=== PATIENT | female | born 1960 | race Caucasian/White ===

== ENCOUNTER 2016-12-04 17:39 | Emergency (ER) | payer MEDICARE, MEDICAID ==
[2016-12-04 18:38] VITALS: BP 130/73
--- NOTE | 2016-12-04 19:06 | UC ---
FLU HPI - HPI Summary HPI Summary: pt presents with nasal congestion, generalized malaise, sore throat X1 day. Has known exposure to URI. Did not get influenza vaccine this year. - History of Current Complaint Chief Complaint: UCRespiratory Stated Complaint: CHEST CONGESTION, AND COUGH Time Seen by Provider: 12/04/16 18:34 Hx Obtained From: Patient ?: No Onset/Duration: Sudden Onset, Lasting Days Severity Currently: Moderate Severity Initially: Mild Associated Signs & Symptoms: Positive: Myalgia, Cough, Sore Throat, Nasal Congestion, Headache - Risk Factors Influenza Risk Factors: Negative - Allergy/Home Medications Allergies/Adverse Reactions: Allergies Allergy/AdvReac Type Severity Reaction Status Date / Time No Known Allergies Allergy Verified 02/15/15 10:08 Home Medications: Home Medications Baclofen TAB* [Lioresal TAB*] 10 mg PO 12/04/16 [History] PMH/Surg Hx/FS Hx/Imm Hx Previously Healthy: Yes Endocrine History Of: Denies: Diabetes, Thyroid Disease Cardiovascular History Of: Denies: Cardiac Disorders, Hypertension Respiratory History Of: Denies: COPD, Asthma GI/ History Of: Denies: Ulcer Psychological History Of: Reports: Anxiety - ON DAILY MEDS, Depression Cancer History Of: Denies: Breast Cancer - Surgical History Surgical History: Yes Surgery Procedure, Year, and Place: 02/2014 [facility]Y [facility]. 1983 BILATERAL TUBAL LIGATION [facility] [place]. 1968 ANTERIOR NECK AREA, CYST REMOVED [facility] - Family History Known Family History: Positive: Other - positive [facility] for URI - Social History Lives: With Family Alcohol Use: None Substance Use Type: None Smoking Status (MU): Current Every Day Smoker Type: Cigarettes Amount Used/How Often: 1PPD 35 YRS Length of Time of Smoking/Using Tobacco: 35 YRS Have You Smoked in the Last Year: No - STATES QUIT IN JANUARY 2014 When Did the Patient Quit Smoking/Using Tobacco: 01/2014 Household Exposure Type: Cigarettes - Immunization History Most Recent Influenza Vaccination: Never Most Recent Tetanus Shot: WIthin 10 years Most Recent Pneumonia Vaccination: Never Review of Systems Constitutional: Fever, Chills, Fatigue Skin: Negative Eyes: Negative ENT: Sore Throat, Other - nasal congestion Respiratory: Cough Cardiovascular: Negative Gastrointestinal: Negative Genitourinary: Negative Motor: Negative Neurovascular: Negative Musculoskeletal: Myalgia Neurological: Headache Psychological: Negative All Other Systems Reviewed And Are Negative: Yes Physical Exam Triage Information Reviewed: Yes Appearance: Ill-Appearing Vital Signs: Initial Vital Signs Temp 98.0 F 12/04/16 18:34 Pulse 78 12/04/16 18:34 Resp 18 12/04/16 18:34 BP 130/73 12/04/16 18:34 Pulse Ox 96 12/04/16 18:34 Vital Signs Reviewed: Yes Eye Exam: Normal ENT Exam: Other ENT: Positive: Nasal congestion, TMs normal - bilateral Neck exam: Normal Respiratory Exam: Normal Cardiovascular Exam: Normal Musculoskeletal Exam: Normal Neurological Exam: Normal Psychological Exam: Normal Skin Exam: Normal Flu Course/Dx - Differential Dx/Diagnosis Differential Diagnosis/HQI/PQRI: Bronchitis, Influenza, Upper Respiratory Infection Provider Diagnoses: Bronchitis Discharge - Discharge Plan Condition: Stable Disposition: HOME Prescriptions: Azithromycin TAB* [Zithromax TAB (Z-RELL) 250 mg #6 tabs] 2 tab PO .TODAY, THEN 1 DAILY #1 rell Benzonatate CAP* [Tessalon 100 MG CAP*] 100 mg PO TID PRN #30 cap PRN Reason: Cough Patient Education Materials: Acute Bronchitis (ED) Referrals: Luis F Marie MD [Primary Care Provider] - Additional Instructions: Please follow up with your PCP or return to clinic as needed.
== END 2016-12-04 20:03 | disposition home or self-care (01) ==
LOC: UCEAST 17:39
DX: J40 Bronchitis, not specified as acute or chronic (principal); Z87.891 Personal history of nicotine dependence
CPT/HCPCS: 87502; 99212; G0463

== ENCOUNTER 2017-03-23 18:08 | Emergency (ER) | payer MEDICARE, MEDICAID ==
[2017-03-23] MEDS ORDERED: Aspirin Low Dose CHEW TAB* 81 MG PO ONE (18:16)
--- NOTE | 2017-03-23 18:21 | UC ---
Cardiac HPI - HPI Summary HPI Summary: 56 YEAR OLD FEMALE PRESENTS WITH LEFT SIDED CHEST PAIN WITH RADIATING TO HER SHOULDERS. I WILL SEND HER TO THE ER TO RULE OUT CT. - History of Current Complaint Stated Complaint: DIZZINESS, CHEST COMPLAINT Time Seen by Provider: 03/23/17 18:16 - Allergy/Home Medications Allergies/Adverse Reactions: Allergies Allergy/AdvReac Type Severity Reaction Status Date / Time No Known Allergies Allergy Verified 02/15/15 10:08 PMH/Surg Hx/FS Hx/Imm Hx - Surgical History Surgical History: Yes Surgery Procedure, Year, and Place: 02/2014 [facility]. 1984 BILATERAL TUBAL LIGATION [facility]. 1968 ANTERIOR NECK AREA, CYST REMOVED [facility] - Family History Known Family History: Positive: Other - positive [facility] for URI - Social History Alcohol Use: None Substance Use Type: None Smoking Status (MU): Current Every Day Smoker Type: Cigarettes Amount Used/How Often: 1PPD 35 YRS Length of Time of Smoking/Using Tobacco: 35 YRS Have You Smoked in the Last Year: No - STATES QUIT IN JANUARY 2014 When Did the Patient Quit Smoking/Using Tobacco: 01/2014 Household Exposure Type: Cigarettes - Immunization History Most Recent Influenza Vaccination: Never Most Recent Tetanus Shot: WIthin 10 years Most Recent Pneumonia Vaccination: Never Review of Systems Constitutional: Negative Skin: Negative Eyes: Negative ENT: Negative Respiratory: Negative Cardiovascular: Palpitations, Chest Pain Gastrointestinal: Negative Genitourinary: Negative Motor: Negative Neurovascular: Negative Musculoskeletal: Negative Neurological: Negative Psychological: Negative All Other Systems Reviewed And Are Negative: Yes Physical Exam Triage Information Reviewed: Yes Eye Exam: Normal ENT Exam: Normal Dental Exam: Normal Neck exam: Normal Neck: Positive: 1 Respiratory Exam: Normal Cardiovascular: Positive: Tachycardia Abdominal Exam: Normal Musculoskeletal Exam: Normal Neurological Exam: Normal Psychological Exam: Normal Skin Exam: Normal - Differential Diagnoses - Hypertension Differential Diagnosis/HQI PQRI: Angina, Myocardial Infarction - Differential Diagnoses - Palpitations Differential Diagnosis/HQI/PQRI: Coronary Artery Disease - Clinical Impression Provider Diagnoses: CHEST PAIN. HEART PALPATATIONS Discharge - Discharge Plan Condition: Stable Disposition: [facility] Patient Education Materials: Chest Pain (ED) Referrals: Luis F Marie MD [Primary Care Provider] -
[2017-03-23 18:24] VITALS: BP 131/63
== END 2017-03-23 18:40 | disposition short-term general hospital (02) ==
LOC: UCEAST 18:08
DX: R07.9 Chest pain, unspecified (principal); R00.2 Palpitations; F17.210 Nicotine dependence, cigarettes, uncomplicated
CPT/HCPCS: 93005; 99213; A9270-GY; G0463

== ENCOUNTER 2017-03-23 18:55 | Emergency (ER) | payer MEDICARE, MEDICAID ==
[2017-03-23] MEDS ORDERED: Meclizine TAB* 12.5 MG PO ONE ×2 (19:31→22:42)
[2017-03-23] MEDS ORDERED: Aspirin Low Dose CHEW TAB* 81 MG PO ONE (19:31)
[2017-03-23] MEDS ORDERED: NS 0.9% 1000 ML* 1,000 ML IV ONE (19:31)
[2017-03-23 19:44] LABS: Hematocrit 42 % (35-47); Hemoglobin 14.2 g/dl (12.0-16.0); Mean Corpuscular HGB Conc 34 g/dl (31-36); Mean Corpuscular Hemoglobin 29 pg (27-31); Mean Corpuscular Volume 88 fL (80-97); Mean Platelet Volume 9 um3 (7.4-10.4); Red Blood Count 4.82 10^6/ul (4.0-5.4); Red Cell Distribution Width 13 % (10.5-15)
--- NOTE | 2017-03-23 19:46 | RAD ---
HISTORY: Chest pain COMPARISONS: July 17, 2014 VIEWS:1: Single frontal portable view of the chest at 7:33 PM FINDINGS: LINES AND TUBES: None. CARDIOMEDIASTINAL SILHOUETTE: The cardiomediastinal silhouette is normal for portable technique. PLEURA: The costophrenic angles are sharp. No pleural abnormalities are noted. LUNG PARENCHYMA: The lungs are clear. ABDOMEN: The upper abdomen is clear. There is no subphrenic gas. BONES AND SOFT TISSUES: No bone or soft tissue abnormalities are noted. IMPRESSION: NO ACTIVE CARDIOPULMONARY DISEASE.
--- NOTE | 2017-03-23 19:49 | RAD ---
HISTORY: Dizziness COMPARISONS: None TECHNIQUE: Multiple contiguous axial CT scans were obtained of the head without intravenous contrast. FINDINGS: HEMORRHAGE/INFARCT: There is no hemorrhage or acute infarct. MASSES/SHIFT: There is no mass or shift. EXTRA-AXIAL SPACES: There are no extra-axial fluid collections. SULCI AND VENTRICLES: The sulci and ventricles are normal in size and position for the patient's stated age. CEREBRUM: There are no focal parenchymal abnormalities. BRAINSTEM: There are no focal parenchymal abnormalities. CEREBELLUM: There are no focal parenchymal abnormalities. VESSELS: The vessels are grossly normal. PARANASAL SINUSES: The paranasal sinuses are clear. ORBITS: The orbits are unremarkable. BONES AND SOFT TISSUE: No bone or soft tissue abnormalities are noted. OTHER: None IMPRESSION: NO ACUTE INTRACRANIAL PATHOLOGY.
[2017-03-23 19:54] LABS: Albumin 4.1 g/dL (3.2-5.2); BUN/Creatinine Ratio 13.5 (8-20); C Reactive Protein 3.03 mg/L (< 5.00); Calcium 9.7 mg/dL (8.6-10.3); EGFR African American 104.4 (>60); EGFR Non-African American 81.2 (>60); Globulin 3.1 g/dL (2-4); Magnesium 2.3 mg/dL (1.9-2.7); Potassium 4.3 mmol/L (3.5-5.0); Total Bilirubin 0.3 mg/dL (0.2-1.0); Total Protein 7.2 g/dL (6.4-8.9)
[2017-03-23 20:04] LABS: TSH (Thyroid Stimulating Horm) 1.11 mcIU/mL (0.34-5.60)
--- NOTE | 2017-03-23 22:49 | ED ---
Kimi Nicole Rebecca, scribed for Alvino Roe MD on 03/23/17 at 1922 . Dizziness - HPI Summary HPI Summary: Pt is a 56 y/o F BIBA who presents to ED c/o dizziness. Dizziness began 2.5 weeks ago and has been intermittent since onset. Dizziness is characterized as feeling near syncopal and weak, further described by saying she "feels like my head is whooshy." Sx aggravated by activity and sitting up, alleviated by nothing. Additionally c/o CP with radiation to the back characterized as a dull , sore sensation that does not change with the dizziness. Also c/o diaphoresis, productive cough (green mucous) and palpitations characterized as hard. Diaphoresis is associated with dizziness episodes. Denies SULLIVAN, rhinorrhea, sore throat, ear ache, abd pain, decreased appetite, dysuria, edema and LE pain. - History Of Current Complaint Chief Complaint: EDDizziness Stated Complaint: TRANSFER FROM [facility] Time Seen by Provider: 03/23/17 19:20 Hx Obtained From: Patient Onset/Duration: Still Present Timing: Intermittent Episode Lasting Character: Weak Aggravating Factor(s): Exertion, Position Change Alleviating Factor(s): Nothing Associated Signs And Symptoms: Positive: Diaphoresis, Chest Pain, Palpitations, Other: - Cough (productive) - Allergies/Home Medications Allergies/Adverse Reactions: Allergies Allergy/AdvReac Type Severity Reaction Status Date / Time No Known Allergies Allergy Verified 02/15/15 10:08 PMH/Surg Hx/FS Hx/Imm Hx Endocrine/Hematology History: Denies: Hx Diabetes, Hx Thyroid Disease Cardiovascular History: Denies: Hx Deep Vein Thrombosis, Hx Hypertension Respiratory History: Denies: Hx Asthma, Hx Chronic Obstructive Pulmonary Disease (COPD) GI History: Reports: Hx Irritable Bowel - Hx OF , NOT CURRENT Denies: Hx Ulcer Musculoskeletal History: Reports: Hx Arthritis - HANDS, Hx Bursitis - LEFT THIGH Sensory History: Reports: Hx Contacts or Glasses - READING Opthamlomology History: Reports: Hx Contacts or Glasses - READING Psychiatric History: Reports: Hx Anxiety - ON DAILY MEDS, Hx Depression Denies: Hx Eating Disorder, Hx of Violent Episodes Against Others - Surgical History Surgery Procedure, Year, and Place: 02/2014 [facility]. 1983 BILATERAL TUBAL LIGATION [facility]. 1968 ANTERIOR NECK AREA, CYST REMOVED [facility] Hx Anesthesia Reactions: No Infectious Disease History: Denies: Hx Hepatitis, Hx Human Immunodeficiency Virus (HIV), Traveled Outside the [place] in Last 30 Days - Family History Known Family History: Positive: Diabetes, Other - positive [facility] for URI - Social History Alcohol Use: None Substance Use Type: Reports: None Smoking Status (MU): Former Smoker Type: Cigarettes Amount Used/How Often: 1PPD 35 YRS - QUIT 8 DAYS AGO Length of Time of Smoking/Using Tobacco: 35 YRS Have You Smoked in the Last Year: Yes Review of Systems Positive: Skin Diaphoresis Negative: Sore Throat, Ear Ache, Nasal Discharge Positive: Palpitations, Chest Pain Positive: Cough - productive Positive: Other - Denies decreased appetite. Negative: Abdominal Pain Negative: dysuria Positive: Other - Negative LE pain. Negative: Edema Neurological: Other - Dizziness Negative: Headache All Other Systems Reviewed And Are Negative: Yes Physical Exam - Summary Physical Exam Summary: General: mildly ill appearing, no pain distress Skin: warm, color reflects adequate perfusion, dry Head: Dizzy when she moves her head Eyes: EOMI, PARAS, some nystagmus ENT: normal, TMs normal Neck: supple, nontender Respiratory: CTA, breath sounds present Cardiovascular: RRR Abdomen: soft, nontender Bowel: present Musculoskeletal: normal, strength/ROM intact, no pedal edema Neurological: normal, sensory/motor intact, A&O x3 Psychological: affect/mood appropriate GCS: 15 Triage Information Reviewed: Yes Vital Signs On Initial Exam: Initial Vitals Temp Pulse Resp BP Pulse Ox 98.2 F 63 18 102/62 95 03/23/17 19:19 03/23/17 19:19 03/23/17 19:19 03/23/17 19:19 03/23/17 19:19 Vital Signs Reviewed: Yes - Nicole Coma Scale Best Eye Response: 4 - Spontaneous Best Motor Response: 6 - Obeys Commands Best Verbal Response: 5 - Oriented Diagnostics - Vital Signs Vital Signs Temp Pulse Resp BP Pulse Ox 03/23/17 19:19 98.2 F 63 18 102/62 95 - Laboratory Lab Results: Lab Results 03/23/17 03/23/17 03/23/17 Range/Units 18:30 18:30 18:30 WBC 8.0 (3.5-10.8) 10^3/ul RBC 4.82 (4.0-5.4) 10^6/ul Hgb 14.2 (12.0-16.0) g/dl Hct 42 (35-47) % MCV 88 (80-97) fL MCH 29 (27-31) pg MCHC 34 (31-36) g/dl RDW 13 (10.5-15) % Plt Count 190 (150-450) 10^3/ul MPV 9 (7.4-10.4) um3 Neut % (Auto) 56.9 (38-83) % Lymph % (Auto) 33.3 (25-47) % Smyth % (Auto) 5.9 (1-9) % Eos % (Auto) 1.9 (0-6) % Baso % (Auto) 2.0 (0-2) % Absolute Neuts (auto) 4.5 (1.5-7.7) 10^3/ul Absolute Lymphs (auto) 2.7 (1.0-4.8) 10^3/ul Absolute Monos (auto) 0.5 (0-0.8) 10^3/ul Absolute Eos (auto) 0.2 (0-0.6) 10^3/ul Absolute Basos (auto) 0.2 (0-0.2) 10^3/ul Absolute Nucleated RBC 0 10^3/ul Nucleated RBC % 0.1 INR (Anticoag Therapy) 0.77 L (0.89-1.11) APTT 29.9 (26.0-36.3) seconds D-Dimer, Quantitative < 200 (Less Than 230) ng/mL Sodium 138 (133-145) mmol/L Potassium 4.3 (3.5-5.0) mmol/L Chloride 104 (101-111) mmol/L Carbon Dioxide 29 (22-32) mmol/L Anion Gap 5 (2-11) mmol/L BUN 10 (6-24) mg/dL Creatinine 0.74 (0.51-0.95) mg/dL Est GFR ( Amer) 104.4 (>60) Est GFR (Non-Af Amer) 81.2 (>60) BUN/Creatinine Ratio 13.5 (8-20) Glucose 122 H (70-100) mg/dL Lactic Acid (0.5-2.0) mmol/L Calcium 9.7 (8.6-10.3) mg/dL Magnesium 2.3 (1.9-2.7) mg/dL Total Bilirubin 0.30 (0.2-1.0) mg/dL AST 22 (13-39) U/L ALT 20 (7-52) U/L Alkaline Phosphatase 65 (34-104) U/L Total Creatine Kinase 78 (10-223) U/L CK-MB (CK-2) 1.1 (0.6-6.3) ng/mL Troponin I 0.00 (<0.04) ng/mL C-Reactive Protein 3.03 (< 5.00) mg/L B-Natriuretic Peptide ( - 100) pg/mL Total Protein 7.2 (6.4-8.9) g/dL Albumin 4.1 (3.2-5.2) g/dL Globulin 3.1 (2-4) g/dL Albumin/Globulin Ratio 1.3 (1-3) Lipase 11 (11.0-82.0) U/L TSH 1.11 (0.34-5.60) mcIU/mL 03/23/17/05/02 Range/Units 18:30 18:30 WBC (3.5-10.8) 10^3/ul RBC (4.0-5.4) 10^6/ul Hgb (12.0-16.0) g/dl Hct (35-47) % MCV (80-97) fL MCH (27-31) pg MCHC (31-36) g/dl RDW (10.5-15) % Plt Count (150-450) 10^3/ul MPV (7.4-10.4) um3 Neut % (Auto) (38-83) % Lymph % (Auto) (25-47) % Smyth % (Auto) (1-9) % Eos % (Auto) (0-6) % Baso % (Auto) (0-2) % Absolute Neuts (auto) (1.5-7.7) 10^3/ul Absolute Lymphs (auto) (1.0-4.8) 10^3/ul Absolute Monos (auto) (0-0.8) 10^3/ul Absolute Eos (auto) (0-0.6) 10^3/ul Absolute Basos (auto) (0-0.2) 10^3/ul Absolute Nucleated RBC 10^3/ul Nucleated RBC % INR (Anticoag Therapy) (0.89-1.11) APTT (26.0-36.3) seconds D-Dimer, Quantitative (Less Than 230) ng/mL Sodium (133-145) mmol/L Potassium (3.5-5.0) mmol/L Chloride (101-111) mmol/L Carbon Dioxide (22-32) mmol/L Anion Gap (2-11) mmol/L BUN (6-24) mg/dL Creatinine (0.51-0.95) mg/dL Est GFR ( Amer) (>60) Est GFR (Non-Af Amer) (>60) BUN/Creatinine Ratio (8-20) Glucose (70-100) mg/dL Lactic Acid 1.8 (0.5-2.0) mmol/L Calcium (8.6-10.3) mg/dL Magnesium (1.9-2.7) mg/dL Total Bilirubin (0.2-1.0) mg/dL AST (13-39) U/L ALT (7-52) U/L Alkaline Phosphatase (34-104) U/L Total Creatine Kinase (10-223) U/L CK-MB (CK-2) (0.6-6.3) ng/mL Troponin I (<0.04) ng/mL C-Reactive Protein (< 5.00) mg/L B-Natriuretic Peptide 21 ( - 100) pg/mL Total Protein (6.4-8.9) g/dL Albumin (3.2-5.2) g/dL Globulin (2-4) g/dL Albumin/Globulin Ratio (1-3) Lipase (11.0-82.0) U/L TSH (0.34-5.60) mcIU/mL Result Diagrams: 03/23/17 18:30 03/23/17 18:30 Lab Statement: Any lab studies that have been ordered have been reviewed, and results considered in the medical decision making process. - Radiology CXR Xray Interpretation: No Acute Changes - NO ACTIVE CARDIOPULMONARY DISEASE. Radiology Interpretation Completed By: Radiologist - CT Brain CT CT Interpretation: No Acute Changes - NO ACUTE INTRACRANIAL PATHOLOGY. CT Interpretation Completed By: Radiologist - EKG 2036 Cardiac Rate: Bradycardia - 55 bpm EKG Rhythm: Sinus Bradycardia ST Segment: Normal Ectopy: None National Institutes Of Health - NIH Scale Level of Consciousness: Alert/Keenly Responsive Ask Patient the Month and His/Her Age: Both Correct Ask Pt to Open/Close Eyes and Collection Manager/Release Non-Paretic Hand: Both Correctly Best Gaze (Only Horizontal Eye Movement): Normal Visual Field Testing: No Visual Loss Facial Paresis-Pt to Smile & Close Eyes or Grimace Symmetry: Normal/Symmetrical Motor Function - Right Arm: No Drift-Holds 10 Seconds Motor Function - Left Arm: No Drift-Holds 10 Seconds Motor Function - Right Leg: No Drift-Holds 10 Seconds Motor Function - Left Leg: No Drift-Holds 10 Seconds Limb Ataxia-Must be out of Proportion to Weakness Present: Absent Sensory (Use Pinprick to Test Arms/Legs/Trunk/Face): Normal Best Language (Describe Picture, Name Items): No Aphasia Dysarthria (Read Several Words): Normal Extinction and Inattention: No Abnormality Total Score: 0 Re-Evaluation - Re-Evaluation First Eval Re-Evaluation Time: 22:02 Change: Improved Comment: Discussed labs, CXR and Brain CT results with the pt. Discussed that her CP has been present for days and she had a negative troponin and D-dimer. Offered admission for CP which she declined. Explained that a road test will be done. Second Eval Re-Evaluation Time: 22:40 Change: Improved Comment: Pt was road tested which went well. Dizzy Course/Dx - Course Assessment/Plan: Pt is a 56 y/o F BIBA who presents to ED c/o intermittent dizziness characterized as weakn and near syncopal for 2.5 weeks. Sx aggravated by activity and sitting up, alleviated by nothing. Additionally c/o CP with radiation to the back characterized as a dull, sore sensation that does not change with the dizziness. Also c/o diaphoresis, productive cough (green mucous ) and palpitations characterized as hard. Diaphoresis is associated with dizziness episodes. Denies SULLIVAN, rhinorrhea, sore throat, ear ache, abd pain, decreased appetite, dysuria, edema and LE pain. NIH Stroke Scale of 0. GCS of 15. CXR and Brain CT reveal no acute findings. EKG reveals sinus bradycardia with no acute findings. Troponin of 0.00. Pt administered 324 mg ASA, Antivert and fluids in the course of the ED. - Diagnoses Provider Diagnoses: Dizziness, Vertigo, Chest pain, Palpitations Discharge - Discharge Plan Condition: Stable Disposition: HOME Prescriptions: Meclizine HCl [Meclizine 25] 25 mg PO Q6HR PRN #15 tab PRN Reason: Dizziness Patient Education Materials: Vertigo (ED), Chest Pain (ED), Palpitations (ED), Dizziness (ED) Referrals: Luis F Marie MD [Primary Care Provider] - Additional Instructions: FOLLOW UP WITH YOUR DOCTOR FOR YOUR DIZZINESS, PALPITATIONS AND CHEST PAIN. RETURN TO THE EMERGENCY DEPARTMENT FOR ANY WORSENING OF YOUR CONDITION; WEAKNESS , NUMBNESS, YOU FEEL ILL, CHEST PAIN, SHORTNESS OF BREATH OR QUESTIONS OR CONCERNS. The documentation as recorded by the Kimi villa Rebecca accurately reflects the service I personally performed and the decisions made by me, Alvino Roe MD.
[2017-03-24 02:07] VITALS: BP 128/71
== END 2017-03-23 23:15 | disposition home or self-care (01) ==
LOC: ED 18:55
DX: R42 Dizziness and giddiness (principal); R07.9 Chest pain, unspecified; R00.2 Palpitations; R61 Generalized hyperhidrosis; R05 Cough
CPT/HCPCS: 36415; 70450; 71010; 80053; 82550; 82553; 83605; 83690; 83735; 83880; 84443; 84484; 85025; 85379; 85610; 85730; 86140; 93005; 99282; A9270-GY